=== PATIENT | male | born 1955 ===

== ENCOUNTER 2019-12-10 08:56 | Outpatient (CLI) | payer OTHER, SELFPAY ==
--- NOTE | ~2019-12-10 | US_ITS ---
EXAMINATION: US abdomen complete EXAM DATE: 12/10/2019 10:33 INDICATION: Abdominal, right upper quadrant pain. Right lower quadrant pain. TECHNIQUE: Multiple grayscale and Doppler images of the complete abdomen were obtained (by a technolo gist who performed the scan) and subsequently reviewed. There is no prior study for comparison. FINDINGS: The abdominal aorta is normal in caliber. Visualized portion IVC is patent. The pancreatic head a nd body are normal in appearance. The pancreatic tail is not visualized. The liver has normal echogenicity and contour. There are no focal liver lesions identified. There is no evidence of intrahepatic biliary duct dilation. Portal venous flow was seen in the hepatopedal , normal direction and has normal Doppler waveform. Common bile duct measures 4 mm, which is normal. The gallbladder fossa is unremarkable. Right kidney: There is normal contour and echogenicity. It measures 10.2 x 5.1 x 4.9 centimeters. T here is an exophytic anechoic lesion consistent with cyst measuring 1 cm. There is no hydronephrosi s. Left kidney: There is normal contour and echogenicity. It measures 10.8 x 4.6 x 5.2 centimeters. T here are no focal renal lesions identified. There is no hydronephrosis. The spleen measures 8.2 centimeters and is morphologically normal. IMPRESSION: 1. Unremarkable complete abdominal ultrasound exam. Reviewed, dictated and finalized at location A. [employer]
== END 2019-12-10 08:57 | disposition home or self-care (01) ==
LOC: ANHIMG 09:06
PROVIDERS: PCP Internal Medicine; Visit Provider Internal Medicine
DX: R10.9 Unspecified abdominal pain (principal)
CPT/HCPCS: 76700